=== PATIENT | male | born 1940 | race Caucasian/White ===

== ENCOUNTER 2018-11-01 11:10 | Emergency (ER) | payer MEDICARE, SELFPAY ==
[~2018-11-01] VITALS: Ht 180.3 cm; Wt 87.0 kg
[~2018-11-01 11:10] MED LIST: ATOR20TA PO; BACDS PO; LISI-230 PO; RANI150C11 PO
[2018-11-01] MEDS ORDERED: morphine 4 MG/ML inj SYRINge IM ONE (12:10)
[2018-11-01 13:39] VITALS: BP 99/56
== END 2018-11-01 14:00 | disposition home or self-care (01) ==
LOC: ER 11:10
DX: M54.2 Cervicalgia (principal); I10 Essential (primary) hypertension; F17.200 Nicotine dependence, unspecified, uncomplicated; Z79.899 Other long term (current) drug therapy
CPT/HCPCS: 93005; 93971; 96372; 99284; J2270